=== PATIENT | female | born 1950 | race Caucasian/White ===

== ENCOUNTER 2017-04-03 15:19 | Inpatient (IN) | payer MEDICARE | END 2017-04-17 12:28 | disposition hospice, inpatient (51) | DRG 207 | LOC: D.ER 15:19 → D.ICU 17:05 | PROVIDERS: ADMIT Family Medicine | PROC: 0T9B70Z Drainage of Bladder with Drainage Device, Via Natural or Artificial Opening (ICD-10-PCS; principal; 2017-04-03) | PROC: 5A1955Z Respiratory Ventilation, Greater than 96 Consecutive Hours (ICD-10-PCS; 2017-04-03) | PROC: 0D9670Z Drainage of Stomach with Drainage Device, Via Natural or Artificial Opening (ICD-10-PCS; 2017-04-04) | DX: J96.01 Acute respiratory failure with hypoxia (principal); I21.4 Non-ST elevation (NSTEMI) myocardial infarction; N17.0 Acute kidney failure with tubular necrosis; J15.1 Pneumonia due to Pseudomonas; J69.0 Pneumonitis due to inhalation of food and vomit; G93.41 Metabolic encephalopathy; I50.21 Acute systolic (congestive) heart failure; E13.10 Other specified diabetes mellitus with ketoacidosis without coma; I13.0 Hypertensive heart and chronic kidney disease with heart failure and stage 1 through stage 4 chronic kidney disease, or unspecified chronic kidney disease; E87.1 Hypo-osmolality and hyponatremia; J98.11 Atelectasis; G40.909 Epilepsy, unspecified, not intractable, without status epilepticus; E11.22 Type 2 diabetes mellitus with diabetic chronic kidney disease; E11.65 Type 2 diabetes mellitus with hyperglycemia; N18.9 Chronic kidney disease, unspecified; E78.5 Hyperlipidemia, unspecified; E87.6 Hypokalemia; I27.2 Other secondary pulmonary hypertension; I07.1 Rheumatic tricuspid insufficiency; D64.9 Anemia, unspecified; Z95.0 Presence of cardiac pacemaker; Z78.1 Physical restraint status ==

== ENCOUNTER 2017-04-17 12:39 | Inpatient (IN) | payer OTHER ==
[~2017-04-17] VITALS: Ht 172.7 cm; Wt 90.9 kg
[~2017-04-17 12:39] MED LIST: ALDACTONE25 MG PO; COREG25 MG PO; COZAAR50 MG PO; KEPPRA500 MG PO; KEPPRA750 MG PO; LANTUS INSULIN10 ML; LIPITOR40 MG PO; NORVASC5 MG PO
[2017-04-17 15:52] VITALS: Ht 172.7 cm; Wt 90.9 kg
[2017-04-18 11:00] VITALS: BP 105/48
== END 2017-04-18 16:58 | DRG 951 ==
LOC: D.ICU 12:39 → D.MS 04-18 12:20
PROVIDERS: ADMIT Legal Medicine
DX: Z51.5 Encounter for palliative care (principal)